=== PATIENT | female | born 1995 | race Asian ===

== ENCOUNTER 2017-02-27 11:15 | Inpatient (IN) | payer SELFPAY ==
[~2017-02-27] VITALS: Ht 160 cm; Wt 45.4 kg
[2017-02-27 11:26] VITALS: BP_SYST 105
--- NOTE | 2017-02-27 11:36 | NUR ---
Patient to ER bed 04 to gown for evaluation. Side rails up. Report given to Paulina
--- NOTE | 2017-02-27 11:42 | NUR ---
ER at bedside examining patient.
[2017-02-27 11:57] LABS: BILIRUBIN,URINE 1+ (NEGATIVE); BLOOD, URINE NEGATIVE (NEGATIVE); CLARITY/URINE HAZY (CLEAR); COLOR,URINE YELLOW (YELLOW); GLUCOSE,URINE NEGATIVE (NEGATIVE); KETONES,URINE NEGATIVE (NEGATIVE); LEUKOCYTE ESTERASE ,URINE 2+ (NEGATIVE); NITRITE, URINE NEGATIVE (NEGATIVE); PROTEIN URINE 2+ (NEGATIVE)
--- NOTE | 2017-02-27 12:05 | NUR ---
EKG DONE , REPORT HANDED TO DR ORTIZ.
--- NOTE | 2017-02-27 12:14 | NUR ---
IV INSERTED IN RIGHT FOREARM, #22 GAUGE CATHETER USED, GOOD BLOOD RETURN NOTED.
[2017-02-27 12:20] LABS: BACTERIA,URINE MODERATE /HPF (None Seen)
[2017-02-27 12:21] LABS: BASOPHILS # (AUTO) 0.1 K/uL (0.0-0.2); BASOPHILS % (AUTO) 0.6 % (0.0-2.0); EOSINOPHILS # (AUTO) 0.2 K/uL (0.0-0.4); EOSINOPHILS % (AUTO) 2.1 % (0.0-4.0); HEMATOCRIT 38.8 % (36-48); LYMPHOCYTES # (AUTO) 2.3 K/uL (1.0-5.5); LYMPHOCYTES % (AUTO) 20.6 % (20.5-51.5); MEAN CORPUSCULAR HEMOGLOBIN 29 pg (27-31); MEAN CORPUSCULAR HGB CONC 34 % (32-36); MEAN CORPUSCULAR VOLUME 88 fL (79.0-98.0); MONOCYTES # (AUTO) 0.7 K/uL (0.0-1.0); NEUTROPHILS % (AUTO) 70.7 % (40.0-70.0); PLATELET COUNT (AUTO) 363 K/uL (130-430); RED BLOOD CELL COUNT(AUTO) 4.44 MIL/uL (4.2-6.2); RED CELL DISTRIBUTION WIDTH 11.1 % (9.0-15.0); WHITE BLOOD COUNT (AUTO) 11.3 K/uL (4.5-11.0)
[2017-02-27 12:22] LABS: CALCIUM 8.9 mg/dL (8.4-11.0); CREATININE 0.61 mg/dL (0.55-1.30); POTASSIUM 4.3 mmol/L (3.5-5.1)
[2017-02-27 12:26] LABS: TOTAL PROTEIN, SERUM 7.2 g/dL (6.4-8.3)
[2017-02-27] MEDS ORDERED: cefTRIAXone 1 GM IVPB PREMIX 50 ML IV ONE (13:30)
--- NOTE | 2017-02-27 13:40 | NUR ---
PT INFORMED OF TRANSFER ORDERS TO TELEMETRY DEPT.
--- NOTE | 2017-02-27 13:52 | NUR ---
IV ROCEPHIN STARTED ORDERED.
--- NOTE | 2017-02-27 14:12 | NUR ---
ADMIT NOTE Received pt from ER to the floor with a diagnosis of pyelonephritis and lupus. Admission process initiated. patient oriented to pain management, safety and call light-teach back done.
--- NOTE | 2017-02-27 14:15 | NUR ---
TRANSPORTED TO ROOM 135-A, REPORT GIVEN TO CARMITA PIERCE, ALL PERSOANL BELONGINGS SENT WITH PT.
[2017-02-27 14:22] VITALS: BP_SYST 93
--- NOTE | 2017-02-27 16:19 | NUR ---
RN ROUNDS PATIENT IS CURRENTLY RESTING IN BED, PATIENT EATING LATE LUNCH AND WATCHING TV, PATIENT HAS NO COMPLAINTS OF PAIN OR DISCOMFORT, FALL PRECAUTIONS IN PLACE, WILL CONTINUE TO MONITOR.
[2017-02-27] MEDS ORDERED: ACETAMINOPHEN 325 MG TABLET PO PRN (18:15)
[2017-02-27] MEDS ORDERED: IBUPROFEN 200 MG TABLET PO PRN (18:30)
--- NOTE | 2017-02-27 18:42 | NUR ---
CLOSING NOTE: PATIENT IS RESTING COMFORTABLY IN BED. NO S/S OF DISTRESS OR SOB. PATIENT IS AWAKE AND ALERT, ABLE TO EXPRESS NEEDS, AND ASK FOR ASSISTANCE. DR. WINSTON IS IN TO SEE THE PATIENT. ORDERS ARE BEING IMPUTED. CALL LIGHT IN REACH, BED IN LOWEST POSITION, AND WILL GIVE REPORT TO NIGHT NURSE.
[2017-02-27] MEDS ORDERED: FAMOTIDINE 20 MG TABLET PO ONE (18:45)
[2017-02-27 19:55] VITALS: BP_SYST 93
[2017-02-27 20:00] VITALS: BP_SYST 93
--- NOTE | 2017-02-27 20:00 | NUR ---
INITIAL NOTES: RECEIVED BEDSIDE REPORT FROM CARMITA GORE AT 1915 HR.VITAL SIGNS TAKEN AT 1954. PATIENT AT BEDSIDE,AWAKE ,ALERT ORIENTED X4. DENIES PAIN NOR SOB. UNABLE TO EAT FOOD FROM HOME DUE TO TONG DISCOMFORT.TOLERATING FLUIDS WELL.AFEBRILE THIS TIME. AMBULATES RO BATHROOM TO VOID WITH STEADY GAIT. HAS SMALL TO BACK AND RIGHT LEG. NO ITCHING. DISCUSSED PLAN OF CARE TONIGHT AND IN AM.SALINE LOCK LEAKING WHEN DURING FLUSH. RE DRESSED AND FIXED. IVF OF D51/2NESS+10 MEQ ORDERED STARTED AT 100ML/HR.EDUCATED ON SAFETY,TO CALL FOR ANY NEEDS OR DISCOMFORTS /NUTRITIONS .EFFECTS AND SIDE EFFECTS OF MEDICINES .ROUTINE ADMISSION SET UP,WITH UNDERSTANDING. SINUS RHYTHM ON TELEMONITOR. WILL MONITOR CLOSELY.
--- NOTE | 2017-02-27 20:10 | NUR ---
DISCUSSED ABOUT POSSIBLE AMA IN AM DUE TO CITIZENSHIP CEREMONY AT 12NOON AT 02/28/17.NOT SURE IF SHE WILL DO IT. PATIENT DISCUSSED IT WITH MD DURING ROUNDS.
[2017-02-27] MEDS: POTASSIUM CHLORIDE 10 MEQ in D5/0.45 NS 1,000 ML IV SCH (20:13)
--- NOTE | 2017-02-27 22:00 | NUR ---
PATIENT RESTING WITH EYES CLOSE. IVF INFUSING.
[2017-02-27 23:58] VITALS: BP_SYST 90
--- NOTE | 2017-02-28 | NUR ---
SEEN AMBULATING TO BATHROOM TO VOID. UNABLE TO EAT WELL DUE TO TONGUE SORENESS.
--- NOTE | 2017-02-28 02:30 | NUR ---
RESTING WITH EYES CLOSE. BREATHING PATTERN REGULAR. IVF INFUSING WELL.
[2017-02-28 03:32] VITALS: BP_SYST 94
--- NOTE | 2017-02-28 04:00 | NUR ---
DATA COMMUNICATIONS SOFTWARE CONSULTANT WOKE PATIENT UP FOR VITAL SIGNS.FEELS CHILLY TEMP. 99.2 ORALLY. BLANKETS PROVIDED.
[2017-02-28] MEDS: POTASSIUM CHLORIDE 10 MEQ in D5/0.45 NS 1,000 ML IV SCH (06:47)
--- NOTE | 2017-02-28 06:50 | NUR ---
CLOSING: PATIENT ASKED WHAT IS HER DECISION. DID CALL HER MOTHER WHO RECOMMENDED FOR HER TO STAY IN THE HOSPITAL TO BE TREATED. PATIENT AGREE WITH MOTHER DECISION. MOTHER SAID SHE WILL RE SCHEDULE OATH TAKING. ALL NEEDS WERE ATTENDED. STILL WITH ORAL THRUSH. RESOLVING RAHES TO BACK AND LEGS. NO ACUTE CARDIOPULMONARY DISTRESS WHOLE SHIFT.CALL LIGHT WITHIN REACH. BED IN LOW POSITION.
[2017-02-28 08:00] LABS: BASOPHILS % (AUTO) 0.3 % (0.0-2.0); EOSINOPHILS # (AUTO) 0.2 K/uL (0.0-0.4); HEMATOCRIT 33.1 % (36-48); HEMOGLOBIN 11.1 g/dL (12.0-16.0); LYMPHOCYTES # (AUTO) 2.9 K/uL (1.0-5.5); LYMPHOCYTES % (AUTO) 25.4 % (20.5-51.5); MEAN CORPUSCULAR HEMOGLOBIN 29 pg (27-31); MEAN CORPUSCULAR HGB CONC 33 % (32-36); MEAN CORPUSCULAR VOLUME 87 fL (79.0-98.0); NEUTROPHILS # (AUTO) 7.4 K/uL (1.8-7.7); NEUTROPHILS % (AUTO) 63.3 % (40.0-70.0); PLATELET COUNT (AUTO) 320 K/uL (130-430); RED BLOOD CELL COUNT(AUTO) 3.79 MIL/uL (4.2-6.2); WHITE BLOOD COUNT (AUTO) 11.5 K/uL (4.5-11.0)
[2017-02-28 08:01] LABS: CALCIUM 8.1 mg/dL (8.4-11.0); CREATININE 0.57 mg/dL (0.55-1.30); POTASSIUM 4.3 mmol/L (3.5-5.1)
--- NOTE | 2017-02-28 08:26 | NUR ---
INITIAL NOTES: PATIENT AT BEDSIDE,AWAKE ,ALERT ORIENTED X4. DENIES PAIN NOR SOB. UNABLE TO EAT FOOD REGULAR DUE TO TONG DISCOMFORT,ONLY IN FLUID DIET.TOLERATING FLUIDS WELL. HAS SMALL TO BACK AND RIGHT LEG. NO ITCHING. DISCUSSED PLAN OF CARE.SALINE LOCK LEAKING WHEN DURING FLUSH. RE DRESSED AND FIXED.EDUCATED ON SAFETY,TO CALL FOR ANY NEEDS OR DISCOMFORTS /NUTRITIONS .ROUTINE ADMISSION SET UP,WITH UNDERSTANDING. WILL MONITOR CLOSELY.
[2017-02-28 08:30] VITALS: BP_SYST 100
--- NOTE | 2017-02-28 08:56 | NUR ---
RN ROUNDS: MEDICATION GIVEN, ASSIST PATIENT AT BED SIDE.
[2017-02-28] MEDS ORDERED: cefTRIAXone 1 GM IVPB PREMIX 50 ML IV SCH (09:00)
[2017-02-28] MEDS ORDERED: FAMOTIDINE 20 MG TABLET PO SCH (09:00)
--- NOTE | 2017-02-28 12:31 | NUR ---
RN ROUNDS: PATIENT NO DISTRESS ,LYING IN THE BED .AND SHE IS ABLE TO WALK TO THE REST ROOM .BUT SHE CANT EAT .SHE COMPLAINT ABOUT PAIN IN THE MONTH AND THROAT.
[2017-02-28 12:40] VITALS: BP_SYST 94
--- NOTE | 2017-02-28 13:05 | NUR ---
DC TELE: DOWNGRADE TO [employer] [employer] [facility] PER DR WINSTON.
--- NOTE | 2017-02-28 13:06 | NUR ---
MD ROUNDS: PATIENT SEEN BY DR WINSTON WITH ORDERS DC HOME WITH PRESCRIPTIONS.PT AGREES TO RETURN TO ER IF HAS ANY NEW SYMPTOMS.F/U WITH PCP IN 1-2 DAYS.
--- NOTE | 2017-02-28 14:27 | NUR ---
Social Service Note: Pt referred by elementary school social worker due to pt being self-pay. LEVERS LACE MACHINE OPERATOR met with pt at bedside; pt states that she recently moved form [facility] to [facility] and has had trouble with her Medi-Pankaj. LEVERS LACE MACHINE OPERATOR provided pt with contact information to Douglas from [facility] who will assist pt with her Medi-Pankaj and see what needs to be completed to process pt's Medi-Pankaj. LEVERS LACE MACHINE OPERATOR also provided pt with a prescription discount card and list of local [facility]. LEVERS LACE MACHINE OPERATOR will remain available for support and will follow up as needed.
[2017-02-28 14:41] VITALS: BP_SYST 104
[2017-02-28 15:18] VITALS: BP_SYST 104
--- NOTE | 2017-02-28 16:30 | NUR ---
PAGED: VERIFIED WITH DR WINSTON THE HOME PRESCRIPTIONS , CALLED [facility] FOR THE PRESCRIPTIONS, THE PATIENT'S PREFERRED PHARMACY. INSTRUCTED THE PATIENT TO OPERATIONS INSPECTOR THE PRESCRIPTIONS AT [facility], ON HER WAY HOME.
--- NOTE | 2017-02-28 17:45 | NUR ---
DC NOTES: TRANSITIONAL CARE DOCUMENTS GIVEN TO PATIENT AND INSTRUCTED TO GRANULATING BLENDER HER PRESCRIPTION MEDS AT [facility].PATIENT VERBALIZED UNDERSTANDING OF DC INSTRUCTIONS.IV REMOVED,DRY GAUZE APPLIED,NO BLEEDING NOTED.PATIENT WENT HOME ACCOMPANIED BY HER FRIEND IN STABLE CONDITION.
== END 2017-02-28 17:40 | disposition home or self-care (01) | DRG 690 ==
LOC: SED 11:15 → STU 13:29 → SMU 02-28 13:32
PROVIDERS: ADMIT Internal Medicine; ATTEND Internal Medicine
DX: N39.0 Urinary tract infection, site not specified (principal); M32.9 Systemic lupus erythematosus, unspecified
CPT/HCPCS: 36415; 80048; 80053; 81000-TC; 81025; 83605; 84484; 85025; 87040-TC; 87086; 87186-TC; 93005; 96365; 99285; J0696; J3480